=== PATIENT | male | born 1965 | race African-American/Black ===

== ENCOUNTER 2023-06-15 03:57 | Day surgery (SDC) | payer BC ==
[2023-06-05 15:09] VITALS: BMI 21.4
[2023-06-15] MEDS ORDERED: GENTAMICIN SO4 80 MG/2 ML VIAL ONE ×3 (07:15→08:10)
[2023-06-15] MEDS ORDERED: VANCOMYCIN 1,000 MG VIAL (RESTRICTED TO ID ONLY) ONE ×3 (07:15→08:10)
[2023-06-15] MEDS ORDERED: MIDAZOLAM HCL 2 MG/2 ML SINGLE DOSE VIAL ONE (07:54)
[2023-06-15] MEDS ORDERED: ROCURONIUM BROMIDE 50 MG/5 ML SYRINGE ONE (07:54)
[2023-06-15] MEDS ORDERED: FENTANYL CITRATE/PF 50 MCG/ML VIAL ONE ×2 (07:54)
[2023-06-15] MEDS ORDERED: PROPOFOL 20 ML ONE ×2 (07:54→08:36)
[2023-06-15] MEDS: GENTAMICIN SO4 80 MG/2 ML VIAL IVPB ONE (08:14)
[2023-06-15] MEDS: VANCOMYCIN 1,000 MG VIAL (RESTRICTED TO ID ONLY) IVPB ONE (08:15)
[2023-06-15] MEDS ORDERED: HYDROmorphone HCl 2 MG/ML VIAL ONE (08:17)
[2023-06-15] MEDS ORDERED: ONDANSETRON 4 MG/2 ML VIAL ONE ×2 (08:19→09:09)
[2023-06-15] MEDS ORDERED: DEXAMETHASONE SOD PHOSPHATE 4 MG/1 ML VIAL ONE (08:19)
[2023-06-15] MEDS ORDERED: oxyCODONE HCL 5 MG TABLET PO PRN ×2 (10:23)
[2023-06-15] MEDS ORDERED: ONDANSETRON 4 MG/2 ML VIAL IVPUSH PRN (10:23)
[2023-06-15] MEDS: LACTATED RINGERS SOLUTION 1,000 ML IV SCH (11:20)
[2023-06-15 12:05] VITALS: RESP 16
[2023-06-15] MEDS ORDERED: ACETAMINOPHEN 500 MG TABLET (FP) PO ONE (12:15)
[2023-06-15] MEDS ORDERED: ACETAMINOPHEN 500 MG TABLET (FP) ONE (12:17)
[2023-06-15] MEDS: ACETAMINOPHEN 500 MG TABLET (FP) PO ONE (12:23)
[2023-06-15 15:54] VITALS: BP 101/68; PULSE 74; TEMP 98.2
== END 2023-06-15 15:20 | disposition home or self-care (01) ==
LOC: JASU-SURG 03:57
PROVIDERS: ATTEND Urology
PROC: 0VUS0JZ Supplement Penis with Synthetic Substitute, Open Approach (ICD-10-PCS; principal; 2023-06-15 08:00)
DX: N52.9 Male erectile dysfunction, unspecified (principal)
CPT/HCPCS: 54405; C1813; 94760

== ENCOUNTER 2023-11-16 04:12 | Day surgery (SDC) | payer BC ==
[2023-11-12 14:00] VITALS: BMI 21.5
[2023-11-16] MEDS ORDERED: GENTAMICIN SO4 80 MG/2 ML VIAL ONE ×2 (09:35→11:30)
[2023-11-16] MEDS ORDERED: VANCOMYCIN 1,000 MG VIAL (RESTRICTED TO ID ONLY) ONE (09:35)
[2023-11-16] MEDS ORDERED: PROPOFOL 40 ML ONE (10:55)
[2023-11-16] MEDS ORDERED: SUCCINYLCHOLINE CHLORIDE 200 MG/10 ML SYRINGE ONE (10:55)
[2023-11-16] MEDS ORDERED: MIDAZOLAM HCL 2 MG/2 ML SINGLE DOSE VIAL ONE (10:56)
[2023-11-16] MEDS: GENTAMICIN 80MG PREMIX BAG IVPB ONE (11:15)
[2023-11-16] MEDS: VANCOMYCIN 1,000 MG VIAL (RESTRICTED TO ID ONLY) IVPB ONE (11:15)
[2023-11-16] MEDS ORDERED: DEXAMETHASONE SOD PHOSPHATE 4 MG/1 ML VIAL ONE (11:38)
[2023-11-16] MEDS ORDERED: ONDANSETRON 4 MG/2 ML VIAL ONE (11:38)
[2023-11-16] MEDS ORDERED: HYDROmorphone HCl 2 MG/ML VIAL ONE (11:40)
[2023-11-16] MEDS ORDERED: ACETAMINOPHEN INJECTION 100 ML ONE (11:41)
[2023-11-16] MEDS ORDERED: ONDANSETRON 4 MG/2 ML VIAL IVPUSH PRN (13:25)
[2023-11-16] MEDS ORDERED: SUGAMMADEX SODIUM 200 MG/2 ML VIAL ONE (13:45)
[2023-11-16] MEDS: LACTATED RINGERS SOLUTION 1,000 ML IV SCH (14:07)
[2023-11-16 15:11] VITALS: TEMP 97.2
[2023-11-16] MEDS: oxyCODONE HCL 5 MG TABLET PO ONE (15:15)
[2023-11-16] MEDS ORDERED: oxyCODONE HCL 5 MG TABLET ONE (15:18)
[2023-11-16 16:58] VITALS: BP 115/68; PULSE 59; RESP 20
== END 2023-11-16 17:10 | disposition home or self-care (01) ==
LOC: JASU-SURG 04:12
PROVIDERS: ATTEND Urology
PROC: 0VPS0JZ Removal of Synthetic Substitute from Penis, Open Approach (ICD-10-PCS; 2023-11-16)
PROC: 0VUS0JZ Supplement Penis with Synthetic Substitute, Open Approach (ICD-10-PCS; principal; 2023-11-16 11:00)
DX: T83.490A Other mechanical complication of implanted penile prosthesis, initial encounter (principal); Y82.8 Other medical devices associated with adverse incidents; Y92.9 Unspecified place or not applicable; N52.9 Male erectile dysfunction, unspecified
CPT/HCPCS: 54410; C1813; 88300-TC; 88304-TC; 94760; J0131